=== PATIENT | female | born 2000 | race Caucasian/White ===

== ENCOUNTER 2023-12-03 08:14 | Inpatient (IN) | payer OTHER, BC, SELFPAY ==
[2023-12-03] VITALS (113 sets, daily range): BP systolic 110–179; BP diastolic 58–94; PULSE 81–142; TEMP 36.6–36.9; O2SAT 93–100; BMI 50.2
[2023-12-03] MEDS: dextrose 5%-lactated ringers 1,000 ML 125 ML IV (09:02)
[2023-12-03 09:08] LABS: Basophils % 0.1 %; Eosinophils # 0.1 10^3/uL (0.0-0.8); Eosinophils % 0.3 %; Hematocrit 32.2 % (36-47); Lymphocytes # 1.3 10^3/uL (0.8-4.8); Lymphocytes % 7.4 %; Mean Corpuscular HGB Conc 31.4 g/dL (30-55); Mean Corpuscular Hemoglobin 25.1 pg (27-33); Mean Corpuscular Volume 79.9 fl (85-98); Mean Platelet Volume 11.5 fL (7.4-10.4); Monocytes # 0.7 10^3/uL (0.2-0.9); Neutrophils % 87.5 %; Nucleated Red Blood Cells % 0 %; Platelet Count 229 10^3/cmm (157-399); Red Blood Count 4.03 10^6/uL (3.85-5.65); Red Cell Distribution Width 14.9 % (12.1-15.1); White Blood Count 18.06 10^3/uL (3.29-11.43)
[2023-12-03] MEDS: lactated ringers 1,000 ML 999 ML IV ×2 (09:50→10:55)
--- NOTE | 2023-12-03 11:52 | ANES.PREANE2 ---
Pre-Anesthetic Assessment Height/Weight: Height 1.65 m Weight 136.985 kg Pulse BP Pulse Ox O2 Del Method 109 H 143/72 99 Room Air 12/03/23 11:48 12/03/23 11:48 12/03/23 11:33 12/03/23 08:00 Preop Diagnosis: Labor pain NGUYEN Was Beta Ruddy taken within 24 hours: N/A Was Clonidine taken within 24 hours: N/A Social No alcohol and No tobacco Exam alert, oriented x 3, clear to auscultation bilaterally and regular rate & rhythm Airway Submandibular: within normal limits Cervical ROM: within normal limits Mallampati: Class II Dentition: full History/ROS No significant history except as noted and No significant complaints Pulmonary None reported CV/HEM None reported None reported Hepatic None reported GI None reported Metabolic Morbid Obesity Elevated WBC's patient deinies recent fever or s/s of infection [facility]/skel None reported Neuropsych None reported Anesthetic Plan ASA status: 2 Anesthesia: Anesthesia Evaluation and Regional (specify below) (NGUYEN) Risk of > 500 ml blood loss (7ml/kg in children): No Medications/Allergies Current Medications Generic Name Dose Route Start Last Admin Trade Name Freq PRN Reason Stop Dose Admin Lactated Ringer's 1,000 mls @ 999 mls/hr 12/03/23 08:20 12/03/23 10:55 Lactated Ringers IV 999 mls/hr .Q1H1M PRN Administration Per L&D Rescitation Protocol Dextrose/Lactated Ringer's 1,000 mls @ 125 mls/hr 12/03/23 08:30 12/03/23 09:02 Dextrose 5%-Lactated Ringers IV 125 mls/hr .Q8H BHAVNA Administration Lactated Ringer's 1,000 mls @ 999 mls/hr 12/03/23 08:26 12/03/23 10:55 Lactated Ringers IV Infused .Q1H1M PRN Infusion See label comments PFSH Anesthesia Female Reproductive History : 1 Data Anesthesia 12/03/23 08:50 Short CBC 12/03/23 Range/Units 08:50 WBC 18.06 H (3.29-11.43) 10^3/uL Hgb 10.10 L (11.27-16.99) g/dL Hct 32.2 L (36-47) % MCV 79.9 L (85-98) fl Plt Count 229 (157-399) 10^3/cmm Neut % (Auto) 87.5 % Neut # (Auto) 15.80 H (1.8-7.7) 10^3/uL Blood Bank 12/03/23 08:50 Blood Type A Negative Rho(D) Type Rh negative Antibody Screen Negative Cardiac Studies: No Data to Display
[2023-12-03] MEDS: ROPivacaine syringe 100 MG/50 ML SYRINGE 13 MG EPIDURAL ×2 (11:55→15:06)
--- NOTE | 2023-12-03 11:59 | ANES.PROC ---
Anesthesia Procedures Procedure/Date: 12/03/23 Epidural: Time Out Performed: Yes Consents Signed: Procedure Consent Consent: requested by attending/covering physician, from patient, risks and benefits reviewed and patient agrees to proceed Lumbar Level: L3-L4 Epidural position: sitting Epidural procedure: sterile prep of area, 1% lidocaine to numb the area, 18 g needle, neg for paresthesia, test dose given, 1.5% xylocaine 1:200k epi, 0.2% Ropivacaine bolus ml (4cc and Fentanyl 100mcg), placed PCEA, no systemic response, sterile dressing applied and 0.2% Ropiavacaine @ mls/hr (13cc/hour.) Other Information: Pt tlerated well
--- NOTE | 2023-12-03 13:27 | P.HP_ITS ---
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 The patient started ruddy the night before and they have become more intense. The patient had progressed from 2 cm to almost 5 cm at presentation. Bag was noted at the time. Patient was ruddy every 2 to 3 minutes. Heart tones showed moderate variability but no significant accelerations. Patient's care was unremarkable however Last ultrasound did show measurements 2-week ahead. Patient is GBS negative. Patient reports good movement and denies any loss of fluid. Present Details : 1 Para: 0 Labs Rubella: Equivocal RPR: Negative GBS: Negative Review of Systems 2 General: Reports: 10 or more systems reviewed and unremarkable except in HPI and below Vitals/I&O/Wt Last Vital Signs Pulse 105 H 12/03/23 13:23 BP 144/84 12/03/23 13:23 Pulse Ox 99 12/03/23 11:33 O2 Del Method Room Air 12/03/23 08:00 12/02/23 12/03/23 12/03/23 22:59 06:59 14:59 Intake Total 1000 / 1000 Balance 1000 / 1000 Weight last 48 hrs Weight 136.985 kg Physical Exam 2 Const: COMMON NORMALS: no acute distress Resp: COMMON NORMALS: normal respiratory effort and No retractions Cardio: COMMON NORMALS: no JVD, regular rate and regular rhythm Extremity: COMMON NORMALS: no clubbing, cyanosis or edema Neuro: COMMON NORMALS: moves all extremities, no focal motor deficits and no sensory deficits noted Psych: COMMON NORMALS: mental status grossly normal and cooperative Urinary Catheter Management: Eden Latex: Cath Placed During This Visit: yes Urinary Catheter Date of Insertion: 12/03/23 Urinary Catheter Time of Insertion: 12:23 Data 12/03/23 08:50 Results Labs [facility] ([facility]): 2 Obstetrics US 09/05/23 Blood Type A Negative 12/03/23 Antibody Screen Negative 12/03/23 Hct 32.2 % (36-47) L 12/03/23 Hgb 10.10 g/dL (11.27-16.99) L 12/03/23 Rho(D) Type Rh negative 12/03/23 Plt Count 229 10^3/cmm (157-399) 12/03/23 A&P Assessment and plan (1) Primigravida in third trimester: (2) Term : Proceed with routine labor management. Rupture of membranes was performed and significant amount of clear fluid was noted. (3) Macrosomia affecting management of mother in third trimester: Qualifiers: Fetus number: single or unspecified fetus Qualified Code(s): O36.63X0 - Maternal care for excessive growth, third trimester, not applicable or unspecified Attestations 2 Medical Necessity Statement*: Patient admitted for labor. Anticipate at least 1 midnight stay. Coding Level of Care Code Acute Code for Chg Fwd Diagnoses Primigravida in third trimester Z34.03 Term Z34.90 Macrosomia of fetus affecting management of mother in third trimester, single or unspecified fetus O36.63X0 Fetus number: single or unspecified fetus
[2023-12-03] MEDS: miSOPROStol 200 mcg Tablet 800 MCG PR (17:10)
--- NOTE | 2023-12-03 18:08 | PM.DELIVERY ---
Delivery Note: Date of delivery: December 03, 2023 Pre-delivery diagnoses: Term intrauterine Post-delivery diagnoses: Same Procedure: Spontaneous vaginal delivery Op report anesthesia: Epidural Estimated blood loss (mL): 600 Post Delivery Diagnoses: hemorrhage: Qualifiers: hemorrhage type: unspecified Qualified Code(s): O72.1 - Other immediate hemorrhage Pre-Delivery Course: The patient presented with active contractions and was found to be advancing dilated to 5 cm. Patient had a bulging bag at that time. The patient proceeded with epidural and after epidural was placed artificial rupture membranes was performed. Large amount of clear fluid was noted and the patient then progressed to completion as expected. heart tones were category 2 with frequent variables and occasional late deceleration. Variability remained normal. Delivery: heart tones were not as reassuring and the patient had completely dilated so the decision to start pushing was made. Patient was placed into the normal lithotomy position and started pushing with each contraction. After pushing for approximately 45 minutes, the patient delivered the infant's head without difficulty. Nose and mouth were suctioned and then the rest of the was then delivered. Tone was not immediately appropriate and after the baby was placed on the abdomen the cord was clamped and cut and handed off to nursing staff for resuscitation. Dr. Aguero was immediately available and assisted in resuscitation. Cord blood was obtained and the placenta was then delivered. Review of the perineum showed a partial third-degree that was repaired with 2-0 Vicryl. Patient also had a significant right labial tear going deep into the vaginal that was also repaired with 2-0 Vicryl. Bleeding was still noted after repair so packing was placed within the vagina. Patient did have a significant bleeding and the patient was also given rectal Cytotec in addition to Pitocin. Post-Delivery Status: Stable A&P Assessment and plan (1) Vaginal delivery: (2) hemorrhage: Patient was given Cytotec. Packing was placed within the vagina and will be removed in approximately 1 hour. Qualifiers: hemorrhage type: unspecified Qualified Code(s): O72.1 - Other immediate hemorrhage Coding Level of Care Code Acute Code for Chg Fwd Diagnoses Vaginal delivery O80 hemorrhage, unspecified type O72.1 hemorrhage type: unspecified
[2023-12-03] MEDS: oxytocin 30 UNIT/500 ML BAG 600 UNIT IV (20:04)
[2023-12-03] MEDS: ibuprofen 800 mg tablet PO (21:14)
[2023-12-04 01:32] VITALS: BP 121/80; PULSE 96; RESP 16; TEMP 36.8; O2SAT 97
[2023-12-04 04:33] VITALS: BP 118/74; PULSE 88; RESP 16; TEMP 37; O2SAT 97
[2023-12-04 07:47] LABS: Hematocrit 25.5 % (36-47); Mean Corpuscular Hemoglobin 25.4 pg (27-33); Mean Platelet Volume 11.7 fL (7.4-10.4); Platelet Count 204 10^3/cmm (157-399); Red Blood Count 3.11 10^6/uL (3.85-5.65); Red Cell Distribution Width 15.4 % (12.1-15.1); White Blood Count 15.67 10^3/uL (3.29-11.43)
--- NOTE | 2023-12-04 08:37 | PM.OBGYDC ---
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 The patient progressed to completion as expected. heart tones were category 2 through the majority of her labor. The patient then was able to deliver a viable male vaginally without difficulty. The patient did have significant partial third-degree perineal tear and vaginal tear on the right. All was repaired with 2-0 Vicryl. Packing was left in the vagina to help with bleeding. That was removed and the patient has had appropriate lochia since. Patient did have a significant amount of blood loss during her delivery and her hemoglobin did drop to 7.9 but overall the patient was not symptomatic with this. Otherwise her care was unremarkable. Information Peripartum Data: Delivery Method: Vaginal Laceration description: Periurethral - 3rd Degree complications: none Physical Exam Const: COMMON NORMALS: no acute distress Neck/C-Spine: COMMON NORMALS: no JVD Resp: COMMON NORMALS: normal respiratory effort and No retractions Cardio: COMMON NORMALS: no JVD, regular rate and regular rhythm RATE: regular rate RHYTHM: regular rhythm GI: OTHER: Uterus firm and below umbilicus Extremity: COMMON NORMALS: no clubbing, cyanosis or edema Neuro: COMMON NORMALS: moves all extremities, no focal motor deficits and no sensory deficits noted Psych: COMMON NORMALS: mental status grossly normal and cooperative Urinary Catheter Management: Eden Latex: Cath Placed During This Visit: yes Urinary Catheter Date of Insertion: 12/03/23 Urinary Catheter Time of Insertion: 12:23 Discharge Data Studies Completed and Pending Pending at discharge Category Date Time Status Complete Crossmatch Routine Lab 12/03/23 08:50 Results Maternal Hemorrhage Scrn Routine Lab 12/03/23 05:10 Received Rho D Immune Globulin Routine Lab 12/03/23 08:50 Results Type and Screen Routine Lab 12/03/23 08:50 Results Laboratory Results WBC 15.67 10^3/uL (3.29-11.43) H 12/04/23 07:35 RBC 3.11 10^6/uL (3.85-5.65) L 12/04/23 07:35 Hgb 7.90 g/dL (11.27-16.99) L 12/04/23 07:35 Hct 25.5 % (36-47) L 12/04/23 07:35 MCV 82.0 fl (85-98) L 12/04/23 07:35 MCH 25.4 pg (27-33) L 12/04/23 07:35 MCHC 31.0 g/dL (30-55) 12/04/23 07:35 RDW 15.4 % (12.1-15.1) H 12/04/23 07:35 Plt Count 204 10^3/cmm (157-399) 12/04/23 07:35 MPV 11.7 fL (7.4-10.4) H 12/04/23 07:35 Neut % (Auto) 87.5 % 12/03/23 08:50 Lymph % (Auto) 7.4 % 12/03/23 08:50 [place] % (Auto) 4.0 % 12/03/23 08:50 Eos % (Auto) 0.3 % 12/03/23 08:50 Baso % (Auto) 0.1 % 12/03/23 08:50 Neut # (Auto) 15.80 10^3/uL (1.8-7.7) H 12/03/23 08:50 Lymph # (Auto) 1.3 10^3/uL (0.8-4.8) 12/03/23 08:50 [place] # (Auto) 0.7 10^3/uL (0.2-0.9) 12/03/23 08:50 Eos # (Auto) 0.1 10^3/uL (0.0-0.8) 12/03/23 08:50 Baso # (Auto) 0.0 10^3/uL (0.0-0.1) 12/03/23 08:50 Nucleated RBC % (auto) 0 % 12/03/23 08:50 Nucleated RBCs # 0.0 /100WBC 12/03/23 08:50 Blood Type A Negative 12/03/23 08:50 Rho(D) Type Rh negative 12/03/23 08:50 Antibody Screen Negative 12/03/23 08:50 Vitals Last Vital Signs Temp 98.6 F 12/04/23 04:33 Pulse 88 12/04/23 04:33 Resp 16 12/04/23 04:33 BP 118/74 12/04/23 04:33 Pulse Ox 97 12/04/23 04:33 O2 Del Method Room Air 12/04/23 04:33 Results Labs OB ([facility]): Obstetrics US 09/05/23 Blood Type A Negative 12/03/23 Antibody Screen Negative 12/03/23 Hct 25.5 % (36-47) L 12/04/23 Hgb 7.90 g/dL (11.27-16.99) L 12/04/23 Rho(D) Type Rh negative 12/03/23 Plt Count 204 10^3/cmm (157-399) 12/04/23 Discharge Plan Discharge Patient Disposition: Home Condition: Stable Discharge Orders: Discharge Order (Routine); Ordered 12/04/23 Ordered By: Gavin Zepeda Referrals: Connor Coello MD [Primary Care Provider] - 6 Weeks Discharge Diet: Usual diet Discharge Activity: Limit activity as instructed Patient Instructions: Depression (GEN), Bleeding (GEN), Hemorrhage (GEN), OB Food/Drug Interaction Guide, OB Care at Home, Opioid Safety, OB Vaginal Deliveries, Abnormal Bleeding Activity Restrictions/Additional Instructions: TAKE OVER THE COUNTER IBUPROFEN AND TYLENOL NEEDED FOR PAIN 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
[2023-12-04] MEDS: ibuprofen 800 mg tablet PO ×2 (09:20→15:18)
[2023-12-04] MEDS: ferrous sulfate EC 325 mg Tablet PO (09:20)
[2023-12-04] MEDS: PRENATAL VIT NO.130/IRON/FOLIC 1 EACH TABLET PO (09:20)
[2023-12-04] MEDS: docusate sodium 100 mg Capsule PO (09:20)
[2023-12-04 18:00] VITALS: BP 133/76; PULSE 97; RESP 16; TEMP 36.6
[2023-12-04 18:10] VITALS: BP 133/76; PULSE 97; RESP 16; TEMP 36.6
--- NOTE | 2023-12-05 15:24 | ANE.PACU2 ---
Inpatient post-anesthesia follow up: Airway intact: Yes Vital signs: Temperature 97.9 F Pulse Rate 97 Respiratory Rate 16 Blood Pressure 133/76 Pulse Oximetry 97 Oxygen Delivery Me thod Room Air Oxygen Flow Rate Fraction of Inspir ed Oxygen Hydration adequate: Yes Nausea and vomiting: No Pain level: controlled Mental status: Baseline Epidural Start/End: Epidural Start Date: 12/03/23 Epidural Start Time: 11:20 Epidural End Date: 12/03/23 Epidural End Time: 15:25
== END 2023-12-04 18:20 | disposition home or self-care (01) | DRG 768 ==
LOC: OPOB 08:14 → OBGYN 08:14
PROVIDERS: Admitting Provider Family Medicine; PCP Family Medicine; Visit Provider Family Medicine
DX: O99.214 Obesity complicating childbirth (principal); Z37.0 Single live birth; E66.01 Morbid (severe) obesity due to excess calories; O36.63X0 Maternal care for excessive fetal growth, third trimester, not applicable or unspecified; O76 Abnormality in fetal heart rate and rhythm complicating labor and delivery; O70.20 Third degree perineal laceration during delivery, unspecified; Z3A.39 39 weeks gestation of pregnancy; O72.1 Other immediate postpartum hemorrhage
CPT/HCPCS: 36415; 36430; 51702; 59025; 59409; 85025; 85027; 85460; 86850; 86900; 90384; 99211; J2590; J2795; J3010; J7120; J7121

== ENCOUNTER 2023-12-11 11:07 | Emergency (ER) | payer OTHER, BC, SELFPAY ==
--- NOTE | 2023-12-11 11:19 | ECG_ITS ---
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 Measurements Intervals [place] Rate: 103 P: 49 AR: 138 QRS: 26 QRSD: 90 T: 13 QT: 314 QTc: 412 Interpretive Statements SINUS TACHYCARDIA ABNORMAL RHYTHM ECG No previous ECG available for comparison Electronically Signed On 12-11-2023 15:28:52 CDT by Jamel Jordan M.D. [email or web address]
[2023-12-11 11:23] VITALS: BP 159/96; PULSE 94; TEMP 37.2; O2SAT 100; BMI 44.9
[2023-12-11 11:40] LABS: Basophils % 0.2 %; Eosinophils # 0.2 10^3/uL (0.0-0.8); Eosinophils % 1.2 %; Hematocrit 32.7 % (36-47); Lymphocytes # 1.7 10^3/uL (0.8-4.8); Lymphocytes % 13.8 %; Mean Corpuscular HGB Conc 29.7 g/dL (30-55); Mean Corpuscular Volume 84.3 fl (85-98); Mean Platelet Volume 9.3 fL (7.4-10.4); Monocytes # 0.6 10^3/uL (0.2-0.9); Monocytes % 4.7 %; Neutrophils # 9.83 10^3/uL (1.8-7.7); Neutrophils % 79.5 %; Nucleated Red Blood Cells % 0 %; Platelet Count 455 10^3/cmm (157-399); Red Blood Count 3.88 10^6/uL (3.85-5.65); White Blood Count 12.38 10^3/uL (3.29-11.43)
--- NOTE | 2023-12-11 11:47 | ED_ITS ---
HPI - Syncope 2 General: Chief Complaint: Syncope Stated Complaint: passed out twice Time Seen by Provider: 12/11/23 11:19 History of Present Illness: 23-year-old female who gave about a week ago. She says this morning when she was in the shower she passed out twice. Her caught her and she did not hit her head or fall down. No injuries. She says otherwise she is been feeling fine. No fevers. No cough. No leg swelling. No abdominal pain. No nausea or vomiting. She has had some mild bleeding since she left the hospital but very minimal she says. Review of Systems 2 Narrative: Constitutional symptoms: Negative except as documented in HPI. Skin symptoms: Negative except as documented in HPI. Eye symptoms: Negative except as documented in HPI. ENMT symptoms: Negative except as documented in HPI. Respiratory symptoms: Negative except as documented in HPI. Cardiovascular symptoms: Negative except as documented in HPI. Gastrointestinal symptoms: Negative except as documented in HPI. Genitourinary symptoms: Negative except as documented in HPI. Musculoskeletal symptoms: Negative except as documented in HPI. Neurologic symptoms: Negative except as documented in HPI. Psychiatric symptoms: Negative except as documented in HPI. Endocrine symptoms: Negative except as documented in HPI. [facility] PFSH: Medical History (Updated 12/11/23 @ 13:35 by Viki Duffy MD) Vaginal delivery Physical Exam 2 Narrative: EXAM NARRATIVE: General: Alert, no acute distress. Skin: Warm, dry. Head: Normocephalic, atraumatic. Neck: Supple, trachea midline. Eye: Extraocular movements are intact. Ears, nose, mouth and throat: mucosa moist. Cardiovascular: Regular, Normal peripheral perfusion. Respiratory: Lungs are clear to auscultation, respirations are non-labored, breath sounds are equal, Symmetrical chest wall expansion. Gastrointestinal: Soft, Nontender, Non distended Musculoskeletal: Normal ROM, no deformity. Neurological: Alert and oriented, No focal neurological deficit observed. Psychiatric: Cooperative, appropriate mood & affect. Course 2 Vital Signs: Vital signs: Vital Signs Temperature 98.9 F 12/11/23 11:23 Pulse Rate 100 12/11/23 12:55 Respiratory Rate 18 12/11/23 11:59 Blood Pressure 109/62 12/11/23 12:55 Pulse Oximetry 98 12/11/23 11:59 Oxygen Delivery Me thod Room Air 12/11/23 11:59 MDM - Syncope Medical Decision Making Medical decision making: Differential diagnosis including but not limited to and based on the above HPI, review of systems and physical exam in this patient with syncope: Vasovagal, orthostatics hypotension, cardiac dysrhythmia, myocardial infarction, infection and hypotension, Orders placed to evaluate differential diagnosis based on the above differential, HPI and physical exam EK:34 AM. Rate 103. Sinus tachycardia, No ST-T changes, no ectopy, normal CT & QRS intervals, This was reviewed and interpreted by myself the ER physician at 11:37 AM Lab Review: Laboratory results were reviewed and interpreted by myself the emergency room physician. Patient has mild leukocytosis with a white count of 12. Hemoglobin is coming up from 7.5 now to 9.7. Mean and creatinine are normal. Patient does have a urinary tract infection. I reviewed the patient's medical record. Reexamination: Patient remained stable. No increased work of breathing. No altered mental status. No focal motor deficits. Assessment and plan: Syncope Urinary tract infection Dehydration -Normal saline bolus and IV Rocephin in the emergency room - Discharged home - Discussed plan with patient. Answered any questions. - Evaluation and treatment of this problem were appropriate in the emergency setting. Lab Data 12/11/23 11:33 12/11/23 11:33 Laboratory Results WBC 12.38 10^3/uL (3.29-11.43) H 12/11/23 11:33 RBC 3.88 10^6/uL (3.85-5.65) 12/11/23 11:33 Hgb 9.70 g/dL (11.27-16.99) L 12/11/23 11:33 Hct 32.7 % (36-47) L 12/11/23 11:33 MCV 84.3 fl (85-98) L 12/11/23 11:33 MCH 25.0 pg (27-33) L 12/11/23 11:33 MCHC 29.7 g/dL (30-55) L 12/11/23 11:33 RDW 16.0 % (12.1-15.1) H 12/11/23 11:33 Plt Count 455 10^3/cmm (157-399) H 12/11/23 11:33 MPV 9.3 fL (7.4-10.4) 12/11/23 11:33 Neut % (Auto) 79.5 % 12/11/23 11:33 Lymph % (Auto) 13.8 % 12/11/23 11:33 [place] % (Auto) 4.7 % 12/11/23 11:33 Eos % (Auto) 1.2 % 12/11/23 11:33 Baso % (Auto) 0.2 % 12/11/23 11:33 Neut # (Auto) 9.83 10^3/uL (1.8-7.7) H 12/11/23 11:33 Lymph # (Auto) 1.7 10^3/uL (0.8-4.8) 12/11/23 11:33 [place] # (Auto) 0.6 10^3/uL (0.2-0.9) 12/11/23 11:33 Eos # (Auto) 0.2 10^3/uL (0.0-0.8) 12/11/23 11:33 Baso # (Auto) 0.0 10^3/uL (0.0-0.1) 12/11/23 11:33 Nucleated RBC % (auto) 0 % 12/11/23 11:33 Nucleated RBCs # 0.0 /100WBC 12/11/23 11:33 Sodium 138 mmol/L (136-145) 12/11/23 11:33 Potassium 4.8 mmol/L (3.5-5.1) 12/11/23 11:33 Chloride 105 mmol/L (98-107) 12/11/23 11:33 Carbon Dioxide 21 mmol/L (22-29) L 12/11/23 11:33 Anion Gap 16.8 (5-19) 12/11/23 11:33 BUN 14 mg/dL (6-20) 12/11/23 11:33 Creatinine 0.7 mg/dL (0.5-0.9) 12/11/23 11:33 GFR Calculation 105.6 mL/min (90-130) 12/11/23 11:33 Glucose 109 mg/dL (65-115) 12/11/23 11:33 Calculated Osmolality 287 mOsm/kg (285-295) 12/11/23 11:33 Calcium 9.0 mg/dL (8.5-10.5) 12/11/23 11:33 Total Bilirubin 0.2 mg/dL (0.15-1.2) 12/11/23 11:33 AST 19 U/L (0-32) 12/11/23 11:33 ALT 28 U/L (0-33) 12/11/23 11:33 Alkaline Phosphatase 131 U/L (35-105) H 12/11/23 11:33 Total Protein 6.8 g/dL (6.6-8.7) 12/11/23 11:33 Albumin 3.4 g/dL (3.5-5.2) L 12/11/23 11:33 Globulin 3.4 g/dL (1.3-4.6) 12/11/23 11:33 Urine Color Yellow (Yellow) 12/11/23 11:45 Urine Appearance Slightly cloudy (CLEAR) 12/11/23 11:45 Urine pH 7 (5-7) 12/11/23 11:45 Ur Specific [place] 1.005 (1.005-1.030) 12/11/23 11:45 Urine Protein Neg (Negative) 12/11/23 11:45 Urine Glucose (UA) Norm (Normal) 12/11/23 11:45 Urine Ketones Negative (Negative) 12/11/23 11:45 Urine Blood 3+ (Negative) H 12/11/23 11:45 Urine Nitrate Negative (Negative) 12/11/23 11:45 Urine Bilirubin Neg (Negative) 12/11/23 11:45 Urine Urobilinogen Norm mg/dL (Negative) 12/11/23 11:45 Ur Leukocyte Esterase 2+ (Negative) H 12/11/23 11:45 Urine RBC 5-10 /hpf (0-2) H 12/11/23 11:45 Urine WBC 15-25 /hpf (0-5) H 12/11/23 11:45 Ur Squamous Epith Cells 5-10 /hpf (0-5) H 12/11/23 11:45 Amorphous Sediment Not Reportable 12/11/23 11:45 Urine Bacteria 1+ /hpf (NONE) H 12/11/23 11:45 No radiology studies performed this visit Discharge Plan Discharge Patient Disposition: Home Clinical Impression: Dehydration Syncope Qualifiers: Syncope type: unspecified Qualified Code(s): R55 - Syncope and collapse Urinary tract infection Qualifiers: Urinary tract infection type: acute cystitis Hematuria presence: with hematuria Qualified Code(s): N30.01 - Acute cystitis with hematuria Condition: Stable Prescriptions: New cephalexin 500 mg capsule 500 mg PO BID 5 Days Qty: 10 0RF Discharge Orders: Discharge ED (Routine); Ordered 12/11/23 Ordered By: Viki Duffy Referrals: Connor Coello MD [Primary Care Provider] - Discharge Diet: Usual diet Discharge Activity: Increase activity as tolerated Patient Instructions: Urinary Tract Infection in Women (ED), Syncope (ED) Activity Restrictions/Additional Instructions: Thank you for choosing [facility] for your healthcare needs today. Please realize this is an emergency room and that we are providing you with a medical screening exam and this may not be complete and all inclusive of all the testing and or work up that you may need to determine your ailment or severity of your illness. You have been screened and evaluated and felt safe for discharge. Health conditions do change or evolve sometimes and as such it is important that you follow up with your Primary Doctor to be re checked, 3-5 days is a general good time frame for follow up. You are always welcome to return to the ED for re assessment if your symptoms are worsening or you have new concerns Coding Level of Care Code ED Guest Service Representative for Abraham Long
[2023-12-11 11:59] VITALS: BP 159/72; PULSE 108; RESP 18; O2SAT 98
[2023-12-11 12:05] LABS: Alanine Aminotransferase 28 U/L (0-33); Albumin Level 3.4 g/dL (3.5-5.2); Alkaline Phosphatase 131 U/L (35-105); Anion Gap 16.8 (5-19); Aspartate Amino Transferase 19 U/L (0-32); Blood Urea Nitrogen 14 mg/dL (6-20); Carbon Dioxide 21 mmol/L (22-29); Chloride 105 mmol/L (98-107); Creatinine Clr Calc Pharmacy 166.9537; Globulin 3.4 g/dL (1.3-4.6); Glomerular Filtration Rate 105.6 mL/min (90-130); Glucose 109 mg/dL (65-115); Osmolality Calculated 287 mOsm/kg (285-295); Potassium 4.8 mmol/L (3.5-5.1); Sodium 138 mmol/L (136-145); Total Bilirubin 0.2 mg/dL (0.15-1.2); Total Protein 6.8 g/dL (6.6-8.7)
[2023-12-11 12:37] VITALS: BP 123/75
[2023-12-11 12:55] VITALS: BP 109/62; BP 116/66; BP 126/81; PULSE 100; PULSE 118; PULSE 122
[2023-12-11 13:02] LABS: Add Urine Culture? Yes; Bacteria Urine 1+ /hpf; Bilirubin Urine Neg (Negative); Blood Urine 3+ (Negative); Glucose Urine UA Norm (Normal); Ketones Urine Negative (Negative); Leukocyte Esterase Urine 2+ (Negative); Nitrate Urine Negative (Negative); Protein Urine Neg (Negative); Specific Gravity, Urine 1.005 (1.005-1.030); Urine Appearance Slightly Cloudy (CLEAR); Urine Color Yellow (Yellow); Urobilinogen Urine Norm (Negative); WBC Urine 15-25 /hpf (0-5); pH Urine 7 (5-7)
[2023-12-11] MEDS: cefTRIAXone 1,000 mg SDV 1000 MG IVP (13:36)
[2023-12-11] MEDS: sodium chloride 0.9% 1,000 ML 999 ML IV (13:36)
[2023-12-11 14:18] VITALS: BP 124/74
== END 2023-12-11 14:19 | disposition home or self-care (01) ==
PROVIDERS: Emergency Provider Emergency Medicine; PCP Family Medicine
DX: R55 Syncope and collapse (principal); O86.22 Infection of bladder following delivery; N30.01 Acute cystitis with hematuria; O90.89 Other complications of the puerperium, not elsewhere classified; E86.0 Dehydration; R00.0 Tachycardia, unspecified
CPT/HCPCS: 36415; 80053; 81001; 85025; 87086; 93005; 96374; 99284; J0696; J7030

== ENCOUNTER 2024-06-15 18:08 | Emergency (ER) | payer OTHER, BC, SELFPAY ==
[2024-06-15 18:34] VITALS: BP 149/84; PULSE 60; RESP 14; TEMP 36.8; O2SAT 99; BMI 28.3
[2024-06-15 19:44] LABS: Basophils % 0.4 %; Eosinophils % 0.4 %; Hematocrit 40.8 % (36-47); Lymphocytes # 1.3 10^3/uL (0.8-4.8); Lymphocytes % 11.1 %; Mean Corpuscular HGB Conc 30.6 g/dL (30-55); Mean Corpuscular Hemoglobin 24.4 pg (27-33); Mean Corpuscular Volume 79.7 fl (85-98); Mean Platelet Volume 10.3 fL (7.4-10.4); Monocytes # 0.5 10^3/uL (0.2-0.9); Monocytes % 4.4 %; Neutrophils # 9.48 10^3/uL (1.8-7.7); Neutrophils % 83.5 %; Nucleated Red Blood Cells % 0 %; Platelet Count 368 10^3/cmm (157-399); Red Blood Count 5.12 10^6/uL (3.85-5.65); Red Cell Distribution Width 14.3 % (12.1-15.1); White Blood Count 11.34 10^3/uL (3.29-11.43)
[2024-06-15 20:03] LABS: Anion Gap 16.1 (5-19); Blood Urea Nitrogen 12 mg/dL (6-20); Calcium 9.2 mg/dL (8.5-10.5); Carbon Dioxide 26 mmol/L (22-29); Chloride 102 mmol/L (98-107); Creatinine Clr Calc Pharmacy 129.4435; Glomerular Filtration Rate 104.6 mL/min (90-130); Glucose 118 mg/dL (65-115); Osmolality Calculated 291 mOsm/kg (285-295); Potassium 4.1 mmol/L (3.5-5.1); Sodium 140 mmol/L (136-145)
[2024-06-15 21:10] LABS: Bilirubin Urine 1+ (Negative); Blood Urine 3+ (Negative); Glucose Urine UA Negative (Normal); Ketones Urine 1+ (Negative); Leukocyte Esterase Urine Trace (Negative); Nitrate Urine Negative (Negative); Protein Urine 1+ (Negative); Urine Appearance Turbid (CLEAR); pH Urine 5.5 (5-7)
[2024-06-15 21:15] LABS: Add Urine Microscopic? YES; Bacteria Urine 1+ /hpf; Hyaline Casts Urine 1.21 /lpf; RBC Urine >100 /hpf (0-2); Squamous Epithelial Cell Urine 0-5 /hpf (0-5); WBC Urine 21-50 /hpf (0-5)
[2024-06-15 21:23] LABS: Add Urine Culture? Yes; Specific Gravity, Urine 1.035 (1.005-1.030); Urine Color Orange (Yellow)
--- NOTE | 2024-06-15 21:27 | CTR_ITS ---
PROCEDURE INFORMATION: Exam: CT Abdomen And Pelvis With Contrast Exam date and time: 06/15/2024 11:24 PM Age: 24 years old Clinical indication: Nausea and vomiting; Abdominal pain; Localized; Right upper quadrant (ruq); Patient HX: Ruq pain with n/v. TECHNIQUE: Imaging protocol: Computed tomography of the abdomen and pelvis with contrast. Radiation optimization: All CT scans at this facility use at least one of these dose optimization techniques: automated exposure control; mA and/or kV adjustment per patient size (includes targeted exams where dose is matched to clinical indication); or iterative reconstruction. Contrast material: OMNI 350; Contrast volume: 100 ml; Contrast route: INTRAVENOUS (IV); COMPARISON: [place] [id number] 09/05/2023 3:17 PM RADIATION DOSE METRICS: Total DLP (mGy-cm): 1123.51 FINDINGS: Lungs: The lung bases are clear. Heart: Heart size is within normal limits. There is no pericardial effusion or pericardial thickening. Liver: The liver is normal. No hepatic masses are identified. Gallbladder and biliary ducts: Gallstones are identified within the gallbladder. There is mild gallbladder wall thickening. There is no definitive pericholecystic inflammatory change. No ductal dilatation. Pancreas: The pancreas is normal. Spleen: The spleen is normal. Adrenal glands: The adrenal glands are normal. Kidneys and ureters: No renal calcifications are identified. There is no hydronephrosis. Stomach and bowel: There is no large or small bowel obstruction. There is no evidence of bowel wall thickening. Appendix: A normal appendix is identified. Intraperitoneal space: No inflammatory changes are identified. There is no free fluid or fluid collection seen. There is no pneumoperitoneum. Vasculature: The aorta is normal in course and caliber. No significant atherosclerotic calcifications are present. Lymph nodes: No enlarged lymph nodes are identified. Urinary bladder: The bladder is unremarkable. Reproductive: The uterus is present. Bones/joints: No acute osseous abnormalities are seen. Soft tissues: Small periumbilical hernia containing only fat. CT/CT abdomen pelvis w con* [id number] IMPRESSION: 1. Cholelithiasis and gallbladder wall thickening. Acute or chronic cholecystitis could have this appearance. Consider right upper quadrant ultrasound or HIDA scan for further evaluation. 2. No other evidence of acute intra-abdominal or pelvic process.
--- NOTE | 2024-06-15 21:40 | ED_ITS ---
Documented by User: [email or web address] Wilcox 06/16/24 00:53 HPI - Abdominal Pain 2 General: Chief Complaint: Abdominal Pain Stated Complaint: Hasn't had a BM in over a week Time Seen by Provider: 06/15/24 20:35 Source: patient Mode of arrival: ambulatory Limitations: no limitations History of Present Illness: Patient is a 24-year-old female with no pertinent past medical history who reports to the emergency department complaining of abdominal pain for the past couple of days. She does note she felt the pain intermittently a couple of weeks ago, but it subsided. States pain is to right upper quadrant, does sometimes go to the back. Still has her gallbladder and still has her appendix. Reports family history of gallbladder issues. She notes with nausea and vomiting, as well as some hesitancy with urination. Also notes constipation, no diarrhea. She has not been running fevers, states that food does not affect her pain as she has not had an appetite. No vaginal bleeding or hematuria/dysuria. No previous abdominal surgeries. Afebrile at this time. MD elicited complaint: abdominal pain Pertinent past history: none Onset (ago): day(s) Pain Consistency: constant Location: RUQ Severity: moderate Quality: stabbing Radiation: back Exacerbating factors: nothing Relieving factors: nothing Associated Symptoms: Reports constipation, nausea and vomiting; Denies bloating, change in stool character, chills, diarrhea, dysuria, fever(s), hematochezia, hematuria, hematemesis and melena Related Data Date of Last Menstrual Period: 06/12/24 Previous Rx's Medication Instructions Recorded amoxicillin 875 mg-potassium 1 tab PO BID 10 days #20 tabs 06/16/24 clavulanate 125 mg tablet ondansetron HCl 4 mg tablet 4 mg PO Q8H #30 tabs 06/16/24 Allergies Allergy/AdvReac Type Severity Reaction Status Date / Time No Known Allergies Allergy Verified 06/15/24 18:39 Review of Systems 2 General: Reports: 10 or more systems reviewed and unremarkable except in HPI and below Const: Denies: fever(s), chills, change in appetite, change in weight or diaphoresis ENMT: Denies: throat pain or hoarseness Card: Denies: chest pain, palpitations or lightheadedness Resp: Denies: dyspnea, productive cough or wheezing GI: Reports: abdominal pain, nausea, vomiting and constipation; Denies: hematemesis, diarrhea, bloating, change in stool character, hematochezia or melena : Reports: urinary hesitancy; Denies: flank pain, dysuria, hematuria or vaginal bleeding Musc: Reports: back pain; Denies: neck pain Skin/Breast: Denies: rash or new lesions Neuro: Denies: headache(s) or dizziness PFSH ED 2 PFSH: Medical History Vaginal delivery Female Reproductive History: Date of last menstrual period: 06/12/24 Physical Exam 2 Const: COMMON NORMALS: no acute distress, average body habitus, patient oriented x3, no limitations, healthy appearing, alert and well nourished G ENERAL APPEARANCE: cooperative and comfortable NUTRITIONAL APPEARANCE: obese ORIENTATION/CONSCIOUSNESS: Yes awake Eye: COMMON NORMALS: Equal, round and reactive pupils present, EOMs intact bilaterally, conjunctivae normal and normal visual roberson by confrontation C ONJUNCTIVA: Yes conjunctivae normal PUPIL: Yes Equal, round and reactive pupils present Neck/C-Spine: COMMON NORMALS: full ROM, supple, no meningeal signs and no JVD Resp: COMMON NORMALS: normal respiratory effort, No retractions, No use of accessory muscles and clear to auscultation bilaterally AUSCULTATION: clear to auscultation bilaterally, no crackles, no rales, no rhonchi and no wheezes Cardio: COMMON NORMALS: no JVD, regular rate, regular rhythm, S1 normal heart sound present, S2 normal heart sound present, No gallops present (Cardio), No clicks present (Cardio), No murmurs present (Cardio), No rub (Cardio) and Peripheral pulses 2+ throughout RATE: regular rate RHYTHM: regular rhythm HEART SOUNDS: S1 normal heart sound present and S2 normal heart sound present PERIPHERAL PULSES: Peripheral pulses 2+ throughout GI: COMMON NORMALS: Normal to inspection, nondistended, normoactive bowel sounds present, Soft to palpation, No hepatosplenomegaly present and no masses AUSCULTATION: Yes normoactive bowel sounds PALPATION: Yes Soft to palpation, Yes Tenderness to palpation present (GI) (Right upper quadrant, positive Carreno sign), No Guarding due to palpation present (GI), No Rigid due to palpation and Yes No hepatosplenomegaly present RECTAL EXAM: deferred : COMMON NORMALS: Yes no CVA tenderness BLADDER/KIDNEY EXAM: Yes no CVA tenderness Back/Pelvis: COMMON NORMALS: no CVA tenderness Extremity: COMMON NORMALS: normal to inspection and full ROM Neuro: COMMON NORMALS: patient oriented x3, moves all extremities, no focal motor deficits and no sensory deficits noted SENSORIUM/ORIENTATION: Yes alert MENINGEAL SIGNS: Yes no meningeal signs Psych: COMMON NORMALS: mental status grossly normal, cooperative and speech normal SPEECH: Yes normal speech Skin: COMMON NORMALS: no rashes or lesions noted GENERAL SKIN EXAM: no rashes or lesions noted Course 2 Vital Signs: Vital signs: Vital Signs Temperature 98.2 F 06/15/24 18:34 Pulse Rate 65 06/16/24 01:54 Respiratory Rate 18 06/16/24 01:04 Blood Pressure 133/87 06/16/24 01:54 Pulse Oximetry 100 06/16/24 01:54 Oxygen Delivery Me thod Room Air 06/15/24 18:34 MDM - Abdominal Pain Medical Decision Making Patient presented with right upper quadrant abdominal pain with nausea and vomiting. Also some constipation. Her vitals are stable. White count was normal, elevation in LFTs with normal bilirubin was evident by metabolic panel. Urinalysis showed signs of infection, there was a large amount of red blood cells and upon further investigation patient is currently on her menstrual cycle. CT abdomen pelvis obtained, her kidneys appeared normal however there was some enlargement of her gallbladder with no signs of obstructed stone. However they recommended ultrasound of the gallbladder, this was obtained again showing enlargement of the gallbladder with cholelithiasis. I spoke with on- call general surgeon, Dr. Higgins, who stated to place the patient on Augmentin and to follow-up in the office. Patient was given Rocephin initially here through an IV, we will start her on Augmentin and treat her nausea as well. A dose of Dilaudid given prior to discharge for pain control, and strict return precautions were given of which the patient understood. Lab Data 06/15/24 19:22 06/15/24 23:03 Labs/Radiology: Radiology Impressions Abdomen/Pelvis CT 06/15/24 21:27 IMPRESSION: 1. Cholelithiasis and gallbladder wall thickening. Acute or chronic cholecystitis could have this appearance. Consider right upper quadrant ultrasound or HIDA scan for further evaluation. 2. No other evidence of acute intra-abdominal or pelvic process. Gallbladder Ultrasound 06/16/24 00:25 IMPRESSION: Unremarkable duplex of the portal vein. IMPRESSION: 1. Cholelithiasis. Mild gallbladder wall thickening measuring up to 6 mm. 2. Enlarged, fatty liver. Laboratory Results WBC 11.34 10^3/uL (3.29-11.43) 06/15/24 19:22 RBC 5.12 10^6/uL (3.85-5.65) 06/15/24 19:22 Hgb 12.50 g/dL (11.27-16.99) 06/15/24 19:22 Hct 40.8 % (36-47) 06/15/24 19:22 MCV 79.7 fl (85-98) L 06/15/24 19:22 MCH 24.4 pg (27-33) L 06/15/24 19:22 MCHC 30.6 g/dL (30-55) 06/15/24 19:22 RDW 14.3 % (12.1-15.1) 06/15/24 19:22 Plt Count 368 10^3/cmm (157-399) 06/15/24 19:22 MPV 10.3 fL (7.4-10.4) 06/15/24 19:22 Neut % (Auto) 83.5 % 06/15/24 19:22 Lymph % (Auto) 11.1 % 06/15/24 19:22 Ida % (Auto) 4.4 % 06/15/24 19:22 Eos % (Auto) 0.4 % 06/15/24 19:22 Baso % (Auto) 0.4 % 06/15/24 19:22 Neut # (Auto) 9.48 10^3/uL (1.8-7.7) H 06/15/24 19:22 Lymph # (Auto) 1.3 10^3/uL (0.8-4.8) 06/15/24 19:22 [place]da # (Auto) 0.5 10^3/uL (0.2-0.9) 06/15/24 19:22 Eos # (Auto) 0.0 10^3/uL (0.0-0.8) 06/15/24 19:22 Baso # (Auto) 0.0 10^3/uL (0.0-0.1) 06/15/24 19:22 Nucleated RBC % (auto) 0 % 06/15/24 19:22 Nucleated RBCs # 0.0 /100WBC 06/15/24 19:22 Sodium 138 mmol/L (136-145) 06/15/24 23:03 Potassium 4.1 mmol/L (3.5-5.1) 06/15/24 23:03 Chloride 101 mmol/L (98-107) 06/15/24 23:03 Carbon Dioxide 23 mmol/L (22-29) 06/15/24 23:03 Anion Gap 18.1 (5-19) 06/15/24 23:03 BUN 12 mg/dL (6-20) 06/15/24 23:03 Creatinine 0.7 mg/dL (0.5-0.9) 06/15/24 23:03 GFR Calculation 104.6 mL/min (90-130) 06/15/24 23:03 Glucose 118 mg/dL (65-115) H 06/15/24 23:03 Calculated Osmolality 287 mOsm/kg (285-295) 06/15/24 23:03 Calcium 9.4 mg/dL (8.5-10.5) 06/15/24 23:03 Total Bilirubin 0.5 mg/dL (0.15-1.2) 06/15/24 23:03 AST 106 U/L (0-32) H 06/15/24 23:03 ALT 225 U/L (0-33) H 06/15/24 23:03 Alkaline Phosphatase 204 U/L (35-105) H 06/15/24 23:03 Total Protein 7.9 g/dL (6.6-8.7) 06/15/24 23:03 Albumin 4.2 g/dL (3.5-5.2) 06/15/24 23:03 Globulin 3.7 g/dL (1.3-4.6) 06/15/24 23:03 HCG, Qual Negative (Negative) 06/15/24 23:03 Urine Color [place] (Yellow) A 06/15/24 21:00 Urine Appearance Turbid (CLEAR) A 06/15/24 21:00 Urine pH 5.5 (5-7) 06/15/24 21:00 Ur Specific [place] 1.035 (1.005-1.030) H 06/15/24 21:00 Urine Protein 1+ (Negative) A 06/15/24 21:00 Urine Glucose (UA) Negative (Normal) 06/15/24 21:00 Urine Ketones 1+ (Negative) H 06/15/24 21:00 Urine Blood 3+ (Negative) A 06/15/24 21:00 Urine Nitrate Negative (Negative) 06/15/24 21:00 Urine Bilirubin 1+ (Negative) H 06/15/24 21:00 Urine Urobilinogen 1.0 mg/dL (Negative) 06/15/24 21:00 Ur Leukocyte Esterase Trace (Negative) A 06/15/24 21:00 Urine RBC >100 /hpf (0-2) H 06/15/24 21:00 Urine WBC 21-50 /hpf (0-5) H 06/15/24 21:00 Ur Squamous Epith Cells 0-5 /hpf (0-5) 06/15/24 21:00 Amorphous Sediment Not Reportable 06/15/24 21:00 Urine Bacteria 1+ /hpf (NONE) H 06/15/24 21:00 Hyaline Casts 1.21 /lpf 06/15/24 21:00 All radiology interpretation(s) finalized by discharge Discharge Plan Discharge Patient Disposition: Home Clinical Impression: Calculous cholecystitis Qualifiers: Cholecystitis acuity: unspecified acuity Biliary obstruction: without biliary obstruction Qualified Code(s): K80.10 - Calculus of gallbladder with chronic cholecystitis without obstruction Condition: Stable Prescriptions: New ondansetron HCl 4 mg tablet 4 mg PO Q8H Qty: 30 0RF amoxicillin-pot clavulanate 875-125 mg tablet 1 tab PO BID 10 Days Qty: 20 0RF Discharge Orders: Discharge ED (Routine); Ordered 06/16/24 Ordered By: Troy Myers Referrals: Connor Coello MD [Primary Care Provider] - Patient Instructions: Cholecystitis (ED) Activity Restrictions/Additional Instructions: Follow-up outpatient with general surgery as we discussed. Please take Augmentin as prescribed. Zofran for nausea. Drink plenty fluids. If you start having severe worsening of pain, severe nausea and vomiting, high fevers, or other concerns please return to the emergency department as we discussed. Coding Level of Care Code ED [employer] for [employer] Documented by User: Delmar Molina DO 06/16/24 06:52 HPI - Abdominal Pain 2 General: Chief Complaint: Abdominal Pain Stated Complaint: Hasn't had a BM in over a week Time Seen by Provider: 06/15/24 20:35 Related Data Previous Rx's Medication Instructions Recorded amoxicillin 875 mg-potassium 1 tab PO BID 10 days #20 tabs 06/16/24 clavulanate 125 mg tablet ondansetron HCl 4 mg tablet 4 mg PO Q8H #30 tabs 06/16/24 Allergies Allergy/AdvReac Type Severity Reaction Status Date / Time No Known Allergies Allergy Verified 06/15/24 18:39 PFSH ED 2 PFSH: Medical History Vaginal delivery Course 2 Vital Signs: Vital signs: Vital Signs Temperature 98.2 F 06/15/24 18:34 Pulse Rate 65 06/16/24 01:54 Respiratory Rate 18 06/16/24 01:04 Blood Pressure 133/87 06/16/24 01:54 Pulse Oximetry 100 06/16/24 01:54 Oxygen Delivery Me thod Room Air 06/15/24 18:34 MDM - Abdominal Pain Medical Decision Making Patient presented with right upper quadrant abdominal pain with nausea and vomiting. Also some constipation. Her vitals are stable. White count was normal, elevation in LFTs with normal bilirubin was evident by metabolic panel. Urinalysis showed signs of infection, there was a large amount of red blood cells and upon further investigation patient is currently on her menstrual cycle. CT abdomen pelvis obtained, her kidneys appeared normal however there was some enlargement of her gallbladder with no signs of obstructed stone. However they recommended ultrasound of the gallbladder, this was obtained again showing enlargement of the gallbladder with cholelithiasis. I spoke with on- call general surgeon, Dr. Higgins, who stated to place the patient on Augmentin and to follow-up in the office. Patient was given Rocephin initially here through an IV, we will start her on Augmentin and treat her nausea as well. A dose of Dilaudid given prior to discharge for pain control, and strict return precautions were given of which the patient understood. Chart reviewed Lab Data 06/15/24 19:22 06/15/24 23:03 Labs/Radiology: Radiology Impressions Abdomen/Pelvis CT 06/15/24 21:27 IMPRESSION: 1. Cholelithiasis and gallbladder wall thickening. Acute or chronic cholecystitis could have this appearance. Consider right upper quadrant ultrasound or HIDA scan for further evaluation. 2. No other evidence of acute intra-abdominal or pelvic process. Gallbladder Ultrasound 06/16/24 00:25 IMPRESSION: Unremarkable duplex of the portal vein. IMPRESSION: 1. Cholelithiasis. Mild gallbladder wall thickening measuring up to 6 mm. 2. Enlarged, fatty liver. Laboratory Results WBC 11.34 10^3/uL (3.29-11.43) 06/15/24 19:22 RBC 5.12 10^6/uL (3.85-5.65) 06/15/24 19:22 Hgb 12.50 g/dL (11.27-16.99) 06/15/24 19:22 Hct 40.8 % (36-47) 06/15/24 19:22 MCV 79.7 fl (85-98) L 06/15/24 19:22 MCH 24.4 pg (27-33) L 06/15/24 19:22 MCHC 30.6 g/dL (30-55) 06/15/24 19:22 RDW 14.3 % (12.1-15.1) 06/15/24 19:22 Plt Count 368 10^3/cmm (157-399) 06/15/24 19:22 MPV 10.3 fL (7.4-10.4) 06/15/24 19:22 Neut % (Auto) 83.5 % 06/15/24 19:22 Lymph % (Auto) 11.1 % 06/15/24 19:22 Ida % (Auto) 4.4 % 06/15/24 19:22 Eos % (Auto) 0.4 % 06/15/24 19:22 Baso % (Auto) 0.4 % 06/15/24 19:22 Neut # (Auto) 9.48 10^3/uL (1.8-7.7) H 06/15/24 19:22 Lymph # (Auto) 1.3 10^3/uL (0.8-4.8) 06/15/24 19:22 Ida # (Auto) 0.5 10^3/uL (0.2-0.9) 06/15/24 19:22 Eos # (Auto) 0.0 10^3/uL (0.0-0.8) 06/15/24 19:22 Baso # (Auto) 0.0 10^3/uL (0.0-0.1) 06/15/24 19:22 Nucleated RBC % (auto) 0 % 06/15/24 19:22 Nucleated RBCs # 0.0 /100WBC 06/15/24 19:22 Sodium 138 mmol/L (136-145) 06/15/24 23:03 Potassium 4.1 mmol/L (3.5-5.1) 06/15/24 23:03 Chloride 101 mmol/L (98-107) 06/15/24 23:03 Carbon Dioxide 23 mmol/L (22-29) 06/15/24 23:03 Anion Gap 18.1 (5-19) 06/15/24 23:03 BUN 12 mg/dL (6-20) 06/15/24 23:03 Creatinine 0.7 mg/dL (0.5-0.9) 06/15/24 23:03 GFR Calculation 104.6 mL/min (90-130) 06/15/24 23:03 Glucose 118 mg/dL (65-115) H 06/15/24 23:03 Calculated Osmolality 287 mOsm/kg (285-295) 06/15/24 23:03 Calcium 9.4 mg/dL (8.5-10.5) 06/15/24 23:03 Total Bilirubin 0.5 mg/dL (0.15-1.2) 06/15/24 23:03 AST 106 U/L (0-32) H 06/15/24 23:03 ALT 225 U/L (0-33) H 06/15/24 23:03 Alkaline Phosphatase 204 U/L (35-105) H 06/15/24 23:03 Total Protein 7.9 g/dL (6.6-8.7) 06/15/24 23:03 Albumin 4.2 g/dL (3.5-5.2) 06/15/24 23:03 Globulin 3.7 g/dL (1.3-4.6) 06/15/24 23:03 HCG, Qual Negative (Negative) 06/15/24 23:03 Urine Color [place] (Yellow) A 06/15/24 21:00 Urine Appearance Turbid (CLEAR) A 06/15/24 21:00 Urine pH 5.5 (5-7) 06/15/24 21:00 Ur Specific [place] 1.035 (1.005-1.030) H 06/15/24 21:00 Urine Protein 1+ (Negative) A 06/15/24 21:00 Urine Glucose (UA) Negative (Normal) 06/15/24 21:00 Urine Ketones 1+ (Negative) H 06/15/24 21:00 Urine Blood 3+ (Negative) A 06/15/24 21:00 Urine Nitrate Negative (Negative) 06/15/24 21:00 Urine Bilirubin 1+ (Negative) H 06/15/24 21:00 Urine Urobilinogen 1.0 mg/dL (Negative) 06/15/24 21:00 Ur Leukocyte Esterase Trace (Negative) A 06/15/24 21:00 Urine RBC >100 /hpf (0-2) H 06/15/24 21:00 Urine WBC 21-50 /hpf (0-5) H 06/15/24 21:00 Ur Squamous Epith Cells 0-5 /hpf (0-5) 06/15/24 21:00 Amorphous Sediment Not Reportable 06/15/24 21:00 Urine Bacteria 1+ /hpf (NONE) H 06/15/24 21:00 Hyaline Casts 1.21 /lpf 06/15/24 21:00 Discharge Plan Discharge Patient Disposition: Home Clinical Impression: Calculous cholecystitis Qualifiers: Cholecystitis acuity: unspecified acuity Biliary obstruction: without biliary obstruction Qualified Code(s): K80.10 - Calculus of gallbladder with chronic cholecystitis without obstruction Condition: Stable Prescriptions: New ondansetron HCl 4 mg tablet 4 mg PO Q8H Qty: 30 0RF amoxicillin-pot clavulanate 875-125 mg tablet 1 tab PO BID 10 Days Qty: 20 0RF Discharge Orders: Discharge ED (Routine); Ordered 06/16/24 Ordered By: Troy Myers Referrals: Connor Coello MD [Primary Care Provider] - Patient Instructions: Cholecystitis (ED) Activity Restrictions/Additional Instructions: Follow-up outpatient with general surgery as we discussed. Please take Augmentin as prescribed. Zofran for nausea. Drink plenty fluids. If you start having severe worsening of pain, severe nausea and vomiting, high fevers, or other concerns please return to the emergency department as we discussed. 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
[2024-06-15 22:14] VITALS: RESP 18; O2SAT 100
[2024-06-15] MEDS: ondansetron 2 mg/ML SDV 2 mL 8 MG IVP (22:14)
[2024-06-15] MEDS: cefTRIAXone 1,000 mg SDV 1000 MG IVP (22:14)
[2024-06-15] MEDS: morphine 4 mg/mL SDV 1 mL 2 MG IVP (22:14)
[2024-06-15 23:18] LABS: HCG, Serum Qual Negative (Negative)
[2024-06-15 23:24] LABS: Alanine Aminotransferase 225 U/L (0-33); Albumin Level 4.2 g/dL (3.5-5.2); Alkaline Phosphatase 204 U/L (35-105); Anion Gap 18.1 (5-19); Aspartate Amino Transferase 106 U/L (0-32); Blood Urea Nitrogen 12 mg/dL (6-20); Calcium 9.4 mg/dL (8.5-10.5); Carbon Dioxide 23 mmol/L (22-29); Chloride 101 mmol/L (98-107); Creatinine Clr Calc Pharmacy 129.4435; Globulin 3.7 g/dL (1.3-4.6); Glomerular Filtration Rate 104.6 mL/min (90-130); Glucose 118 mg/dL (65-115); Osmolality Calculated 287 mOsm/kg (285-295); Potassium 4.1 mmol/L (3.5-5.1); Sodium 138 mmol/L (136-145); Total Bilirubin 0.5 mg/dL (0.15-1.2); Total Protein 7.9 g/dL (6.6-8.7)
[2024-06-15] MEDS: iohexol 350 mg/mL 500 mL Btl (per mL) IV (23:26)
[2024-06-15 23:42] VITALS: BP 155/76; PULSE 54; O2SAT 99
--- NOTE | 2024-06-16 00:25 | USR_ITS ---
PROCEDURE INFORMATION: Exam: US Duplex Artery or Vein of the Abdominal and/or Reproductive Organs, Limited Liver Exam date and time: 06/16/2024 12:31 AM Age: 24 years old Clinical indication: Abdominal pain; Localized; Right upper quadrant (ruq); Additional info: Ruq pain, CT findings TECHNIQUE: Imaging protocol: Real-time duplex ultrasound scan of the arterial or venous flow with color Doppler flow and spectral waveform analysis with image documentation. Limited Duplex exam focused on the liver and portal venous system. Duplex exam was performed to evaluate for vascular conditions. COMPARISON: CT abdomen pelvis w con* [id number] 06/15/2024 11:24 PM FINDINGS: Portal venous: Patent. Normal waveforms. Normal hepatopetal (towards the liver) flow. Hepatic artery: Not assessed. PROCEDURE INFORMATION: Exam: US Abdomen, Limited; Right Upper Quadrant Exam date and time: 06/16/2024 12:31 AM Age: 24 years old Clinical indication: Abdominal pain; Localized; Right upper quadrant (ruq); Additional info: Ruq pain, CT findings TECHNIQUE: Imaging protocol: Real time ultrasound of the abdomen with image documentation. Limited exam focused on the right upper quadrant. COMPARISON: CT abdomen pelvis w con* [id number] 06/15/2024 11:24 PM FINDINGS: Liver: There is diffuse increased echogenicity of the hepatic parenchyma consistent with fatty infiltration. The liver is mildly enlarged. No hepatic masses are identified by ultrasound. Gallbladder: Gallstones are identified within the gallbladder. There is mild gallbladder wall thickening measuring up to 6 mm. Biliary ducts: There is no evidence of intra or extrahepatic ductal dilatation. The common bile duct measures 4 mm. Pancreas: The majority of the pancreas is obscured by bowel gas. The visualized portions are within normal limits. Right kidney: The right kidney is normal. There is no evidence of renal calcification or hydronephrosis. The right kidney measures 10.9 cm in length. Aorta: The visualized aorta appears within normal limits. Inferior vena cava: The visualized inferior vena cava is within normal limits. Portal venous: The portal vein is patent. US/US gall bladder [id number] IMPRESSION: Unremarkable duplex of the portal vein. IMPRESSION: 1. Cholelithiasis. Mild gallbladder wall thickening measuring up to 6 mm. 2. Enlarged, fatty liver.
[2024-06-16 01:04] VITALS: RESP 18; O2SAT 100
[2024-06-16] MEDS: amoxicillin-clav 875-125 mg Tablet 1 TAB PO (01:04)
[2024-06-16] MEDS: HYDROmorphone 1 mg/mL INJ 1 mL IVP (01:04)
[2024-06-16 01:54] VITALS: BP 133/87; PULSE 65; O2SAT 100
--- NOTE | 2024-06-18 07:30 | DCPLANNER ---
messaged gen surg for er f/u
== END 2024-06-16 01:00 | disposition home or self-care (01) ==
PROVIDERS: Student in an Organized Health Care Education/Training Program; Emergency Provider Physician Assistant; PCP Family Medicine
DX: K80.10 Calculus of gallbladder with chronic cholecystitis without obstruction (principal)
CPT/HCPCS: 36415; 74177; 76705; 80048; 80053; 81001; 84703; 85025; 87086; 96374; 96375; 99285; J0696; J1171; J2270; J2405